=== PATIENT | male | born 1950 | race Caucasian/White ===

== ENCOUNTER 2019-11-13 11:26 | Emergency (ER) | payer OTHER ==
--- OUTSIDE RECORDS SUMMARY | 2019-11-13 11:31 | XMS REPORT ---
:1950 Author Organization [facility] Address [address] [place] [address] Care Team Providers Name Role Phone UNKNOWN, REFFERING Primary Care Provider Unavailable EUFEMIA MARTINEZ Unavailable Unavailable Problems This patient has no known problems. Allergies, Adverse Reactions, Alerts This patient has no known allergies or adverse reactions. Medications This patient has no known medications. Encounters Start End Encounter Admission Attending Care Care Encounter Date/Time Date/Time Type Type Clinicians Facility Department ID 2017-07-30 2017-07-30 Outpatient C DOMENICO MARTINEZ [facility] [id number] 07:57:00 07:57:00 EUFEMIA Results Test Description Test Time Test Comments Text Results Atomic Results Result Comments POC Glucose, Blood 2017-07-30 13:08:00 Test Item Value Reference Range Comments POC Glucose (test code=POCGLUC) 122 mg/dL 70-115 If you consider your patient critically ill, the [place] Accu-Chek InformII metershould not be used for Glucose determinations.Draw a venous Glucose and send to the Main Lab for Analysis. POC Glucose, [id number] 11:59:00 Test Item Value Reference Range Comments POC Glucose (test 132 mg/dL 70-115 If you consider your patient code=POCGLUC) critically ill, the [place] Accu-Chek InformII metershould not be used for Glucose determinations.Draw a venous Glucose and send to the Main Lab for Analysis. POC Glucose, [id number] 07:53:00 Test Item Value Reference Range Comments POC Glucose (test 108 mg/dL 70-115 If you consider your patient code=POCGLUC) critically ill, the [place] Accu-Chek InformII metershould not be used for Glucose determinations.Draw a venous Glucose and send to the Main Lab for Analysis. Culture, [id number] 08:08:00Specimen: UrineCollected: 07/19/2017 15:00 Status: Final Last Updated: 07/21/2017 08:08 Culture Result (Final) (Final ) 07/20/17 No growth 24 hours 07/21/17 No growth 48 hoursXR CHEST 2V, FRANCISCO/ [id number] 15:26:54EXAM: CHEST 2 VIEWSINDICATION: Preop COMPARISON: None availableTECHNIQUE: PA and lateral views of the chest.FINDINGS: The cardiomediastinal silhouette is normal. The lungs are clearbilaterally. No pneumothorax or pleural effusion is identified. Theosseous structures are unremarkable. 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
[2019-11-13 12:54] LABS: Absolute Lymphocytes (CBC) 1.4 K/uL (0.7-4.9); Basophils % 1.3 % (0-1.3); Hematocrit 48.2 % (39.6-49.0); Lymphocytes % 15.1 % (15.3-44.8); MPV 8.5 fL (7.6-11.3); RBC Red Blood Cell Count 4.97 M/uL (4.33-5.43)
--- NOTE | 2019-11-13 13:02 | RAD REPORT ---
EXAM DESCRIPTION: US - Extremity Venous Uni Ltd - 11/13/2019 12:48 pm CLINICAL HISTORY: Pain;Swelling COMPARISON: None. TECHNIQUE: Real-time sonographic evaluation of the right lower extremity deep venous systems was per formed. FINDINGS: Normal compressibility, flow augmentation, phasic flow and spontaneous flow are identified in the right lower extremity common femoral and proximal superficial femoral veins. No intraluminal filling defects seen. Echogenic material is present filling the right leg deep venous system from mid femoral vein through the popliteal vein at the knee. No suspicious soft tissue finding. IMPRESSION: Acute deep venous thrombosis right lower extremity from mid thigh to the knee.
--- NOTE | 2019-11-13 13:04 | RAD REPORT ---
EXAM DESCRIPTION: US - Lower Extremity Artery Uni Ltd - 11/13/2019 12:48 pm CLINICAL HISTORY: PAIN COMPARISON: No comparisons TECHNIQUE: Doppler evaluation of the right arterial tree performed. Waveforms and velocity values we re obtained along with visual inspection. FINDINGS: Velocity values in the right lower extremity are within normal range and show normal taper ing from groin to ankle. No occlusion or flow restricting lesion identifiable. No significant atheros clerotic changes along the pearl of the arterial tree. Biphasic or triphasic waveform pattern was see n. IMPRESSION: Right lower extremity arterial study shows no significant finding.
[2019-11-13 13:11] LABS: Potassium 3.7 mmol/L (3.5-5.1)
--- NOTE | 2019-11-13 13:29 | ER ---
Nurse's Notes [facility] Name: Shayan Ricardo Age: 68 yrs Sex: Male : 1950 Arrival Date: 11/13/2019 Time: 11:31 Bed 5 Private MD: Diagnosis: Acute embolism and thrombosis of unspecified deep veins of right proximal lower extremity Presentation: 11/12 12:01 Chief complaint: Patient states: pain and swelling to right leg X 4-5 days ago, has iw dull aching to back of calf, has hx of vein surgery X 5 years ago, states he drives a lot from [place] to [place]. Coronavirus screen: The patient has NOT traveled to a country currently being monitored by the [facility] within the last 14 days. Proceed with normal triage procedures. The patient has NOT had contact with any known and/or suspected case of coronavirus. Proceed with normal triage procedures. Ebola Screen: Patient negative for fever greater than or equal to 101.5 degrees Fahrenheit, and additional compatible Ebola Virus Disease symptoms Patient denies exposure to infectious person. Patient denies travel to an Ebola-affected area in the 21 days before illness onset. No symptoms or risks identified at this time. Initial Sepsis Screen: Does the patient meet any 2 criteria? No. Patient's initial sepsis screen is negative. Does the patient have a suspected source of infection? No. Patient's initial sepsis screen is negative. Risk Assessment: Do you want to hurt yourself or someone else? Patient reports no desire to harm self or others. 12:01 Method Of Arrival: Ambulatory iw 12:01 Acuity: ALYCIA 3 iw Triage Assessment: 12:05 General: Appears in no apparent distress. comfortable, obese, Behavior is cooperative, bp appropriate for age, anxious. Pain: Complains of pain in right leg and left leg. EENT: No deficits noted. Neuro: No deficits noted. Cardiovascular: Rhythm is sinus tachycardia. Respiratory: No deficits noted. GI: No signs and/or symptoms were reported involving the gastrointestinal system. : No signs and/or symptoms were reported regarding the genitourinary system. Derm: No deficits noted. Musculoskeletal: Swelling present in right leg and left leg. Historical: - Allergies: 12:05 Sulfa (Sulfonamide Antibiotics); iw - PSHx: 12:05 left shoulder; right leg; right foot; left knee; left elbow; left bicep; right knee; iw right shoulder; - Immunization history:: Adult Immunizations up to date. - Social history:: Smoking status: Patient reports the use of cigarette tobacco products, smokes one pack cigarettes per day. - Family history:: not pertinent. - Hospitalizations: : No recent hospitalization is reported. Screenin:27 Abuse screen: Denies threats or abuse. Denies injuries from another. Nutritional hb screening: No deficits noted. Tuberculosis screening: No symptoms or risk factors identified. Fall Risk None identified. Assessment: 12:05 General: SEE TRIAGE NOTE. bp 12:58 Reassessment: PT RETURNED FROM U/S. bp 13:35 Reassessment: D/C ON HOLD FOR RX DELIVERY. bp Vital Signs: 12:01 BP 148 / 93; Pulse 110; Resp 16; Temp 97.5; Pulse Ox 97% on R/A; Weight 120.2 kg; iw Height 6 ft. 0 in. (182.88 cm); Pain 6/10; 14:00 BP 137 / 85; Pulse 95; Resp 16; Temp 97.8; Pulse Ox 98% ; bp 12:01 Body Mass Index 35.94 (120.20 kg, 182.88 cm) iw ED Course: 11:31 Patient arrived in ED. ag5 12:03 Triage completed. iw 12:05 Arm band placed on. iw 12:08 Orlando Siddiqi MD is Attending Physician. rn 12:27 Corey Juárez RN is Primary Nurse. bp 12:27 Patient has correct armband on for positive identification. Placed in gown. Bed in low hb position. Call light in reach. Side rails up X 1. 12:30 Initial lab(s) drawn, by pr, sent to lab. Inserted saline lock: 20 gauge in right em1 antecubital area, using aseptic technique. Blood collected. 12:49 Extremity Venous Sentric Music US In Process Unspecified. EDMS 12:49 Lower Extremity Artery Sentric Music US In Process Unspecified. EDMS 14:13 No provider procedures requiring assistance completed. IV discontinued, intact, bp bleeding controlled, No redness/swelling at site. Pressure dressing applied. Administered Medications: 14:00 Drug: Eliquis 10 mg Route: PO; bp 14:15 Follow up: Response: No adverse reaction bp Outcome: 13:28 Discharge ordered by . rn 14:14 Discharged to home ambulatory, with family. bp 14:14 Condition: stable 14:14 Discharge instructions given to patient, Instructed on discharge instructions, follow up and referral plans. medication usage, Demonstrated understanding of instructions, follow-up care, medications, Prescriptions given X 2. 14:15 Patient left the ED. bp Signatures: Dispatcher [employer] EDCarine Wells RN RN iw Nieto, Roman, MD MD rn Martinez, Eric em1 Belgica Pereyra RN RN hb Peltier, Brian, RN RN bp Gaskin, Ajare ag5
--- NOTE | 2019-11-13 13:29 | EDPHYS ---
Physician Documentation [facility] Name: Shayan Ricardo Age: 68 yrs Sex: Male : 1950 Arrival Date: 11/13/2019 Time: 11:31 Bed 5 Private MD: ED Physician Orlando Siddiqi HPI: 11/12 12:56 This 68 yrs old Male presents to ER via Ambulatory with complaints of Leg rn Swelling. 12:56 The patient presents with pain, swelling. The complaints affect the right calf. Onset: rn The symptoms/episode began/occurred 5 day(s) ago. Modifying factors: The symptoms are alleviated by nothing. the symptoms are aggravated by movement. Severity of symptoms: At their worst the symptoms were moderate, in the emergency department the symptoms are unchanged. The patient has not experienced similar symptoms in the past. Reports RLE swelling and pain, feels "tight", began a few days ago, no fever, no recent surgery. Has had venous surgery to right greater saphenous in past, and has hemochromatosis, never hx of dvt/PE. No recent immobilization. Does drive a lot to visit family, but local from [place] and back. No trauma. . Historical: - Allergies: 12:05 Sulfa (Sulfonamide Antibiotics); iw - PSHx: 12:05 left shoulder; right leg; right foot; left knee; left elbow; left bicep; right knee; iw right shoulder; - Immunization history:: Adult Immunizations up to date. - Social history:: Smoking status: Patient reports the use of cigarette tobacco products, smokes one pack cigarettes per day. - Family history:: not pertinent. - Hospitalizations: : No recent hospitalization is reported. ROS: 12:56 Constitutional: Negative for fever, chills, and weight loss, Cardiovascular: Negative rn for chest pain, palpitations, and edema, Respiratory: Negative for shortness of breath, cough, wheezing, and pleuritic chest pain, Abdomen/GI: Negative for abdominal pain, nausea, vomiting, diarrhea, and constipation, Back: Negative for injury and pain, MS/Extremity: + RLE pain and swelling Skin: + RLE discoloration/darkening Neuro: Negative for headache, weakness, numbness, tingling, and seizure. Exam: 12:56 Constitutional: This is a well developed, well nourished patient who is awake, alert, rn and in no acute distress. Cardiovascular: Regular rate and rhythm. No pulse deficits. Respiratory: No increased work of breathing, no retractions or nasal flaring. Skin: Warm, dry, and no evidence of cellulitis. MS/ Extremity: Pulses equal, no cyanosis. + RLE swelling with increased circumference compared to LLE with 2+ pitting edema and plethoric coloration. Vital Signs: 12:01 BP 148 / 93; Pulse 110; Resp 16; Temp 97.5; Pulse Ox 97% on R/A; Weight 120.2 kg; iw Height 6 ft. 0 in. (182.88 cm); Pain 6/10; 14:00 BP 137 / 85; Pulse 95; Resp 16; Temp 97.8; Pulse Ox 98% ; bp 12:01 Body Mass Index 35.94 (120.20 kg, 182.88 cm) iw MDM: 12:08 Patient medically screened. rn 13:18 ED course: Consulted with bashir Richard to start eliquis and will f/u as outpt. . rn 13:24 Differential diagnosis: DVT. Data reviewed: vital signs, nurses notes, radiologic rn studies, doppler, and as a result, I will discharge patient. Counseling: I had a detailed discussion with the patient and/or guardian regarding: the historical points, exam findings, and any diagnostic results supporting the discharge/admit diagnosis, lab results, radiology results, the need for outpatient follow up, to return to the emergency department if symptoms worsen or persist or if there are any questions or concerns that arise at home. Special discussion: I discussed with the patient/guardian in detail that at this point there is no indication for admission to the hospital. It is understood, however, that if the symptoms persist or worsen the patient needs to return immediately for re-evaluation. 11/12 12:14 Order name: CBC with Diff; Complete Time: 13:01 rn 11/12 12:14 Order name: Basic Metabolic Panel; Complete Time: 13:27 rn 11/12 12:14 Order name: Extremity Venous Uni Ltd US; Complete Time: 13:07 rn 11/12 12:14 Order name: Lower Extremity Artery Uni Ltd US; Complete Time: 13:07 rn 11/12 12:14 Order name: IV Start; Complete Time: 12:30 rn Administered Medications: 14:00 Drug: Eliquis 10 mg Route: PO; bp 14:15 Follow up: Response: No adverse reaction bp Disposition: 11/13/19 13:28 Discharged to Home. Impression: Acute embolism and thrombosis of unspecified deep veins of right proximal lower extremity. - Condition is Stable. - Discharge Instructions: Deep Vein Thrombosis. - Prescriptions for Eliquis 5 mg Oral tablet - take 1 tablet by ORAL route 2 times per day This is daily anticoagulation, don't start taking until completion of first week's prescription; 60 tablet. Eliquis 5 mg Oral tablet - take 2 tablet by ORAL route 2 times per day for 7 days This is starting dose for first week only.; 28 tablet. - Medication Reconciliation Form, Thank You Letter, Antibiotic Education, Prescription Opioid Use form. - Follow up: Private Physician; When: As needed; Reason: Recheck today's complaints, Re-evaluation by your physician. - Problem is new. - Symptoms are unchanged. Signatures: Dispatcher [employer] EDCarine Wells RN RN iw Nieto, Roman, MD MD rn Peltier, Brian, RN RN bp Corrections: (The following items were deleted from the chart) 14:15 13:28 11/13/2019 13:28 Discharged to Home. Impression: Acute embolism and thrombosis of bp unspecified deep veins of right proximal lower extremity. Condition is Stable. Forms are Medication Reconciliation Form, Thank You Letter, Antibiotic Education, Prescription Opioid Use. Follow up: Private Physician; When: As needed; Reason: Recheck today's complaints, Re-evaluation by your physician. Problem is new. Symptoms are unchanged. rn
[2019-11-13] MEDS ORDERED: APIXABAN 5 MG TABLET PO ONE (13:45)
[2019-11-13 14:36] VITALS: BP 137/85; TEMP 97.8; O2SAT 98
== END 2019-11-13 14:15 | disposition home or self-care (01) ==
LOC: ER 11:26
DX: I82.4Y1 Acute embolism and thrombosis of unspecified deep veins of right proximal lower extremity (principal); F17.210 Nicotine dependence, cigarettes, uncomplicated; Z88.2 Allergy status to sulfonamides
CPT/HCPCS: 36415; 80048; 85025; 93926; 93971; 99284

== ENCOUNTER 2021-03-23 13:18 | Emergency (ER) | payer OTHER ==
--- OUTSIDE RECORDS SUMMARY | 2021-03-23 13:21 | XMS REPORT | Continuity of Care Document ---
:1950 Author Organization [facility] Address [address] [place] [address] Care Team Providers Name Role Phone UNKNOWN Primary Care Physician Unavailable Abbie MOONEY Attending Clinician Unavailable Jake TORRES, Y.H. Attending Clinician Provider Attending Clinician Zion MOONEY Attending Clinician Unavailable Daryn MARTINEZ Attending Clinician Unavailable Daryn MARTINEZ Admitting Clinician Unavailable Payers Payer Name Policy Type Policy Effective Date Expiration Date Sour ce Number AETNA MEDICAREAETNA [id number] 2018 [place] MEDICARE HMO/PPO 00:00:00 Methodis t [id number] -PresentHMO Problems This patient has no known problems. Allergies, Adverse Reactions, Alerts This patient has no known allergies or adverse reactions. Family History Family Member Diagnosis Comments Start Date Stop Date Source Natural father Diabetes [facility]od[facility] Natural father Pancreatic cancer Jin Darnell Paternal grandfather Lung cancer Jin Darnell Social History Social Habit Start Date Stop Date Quantity Comments Source Cigarettes smoked 2020-09-19 2020-09-19 Josias Darnell current (pack per 00:00:00 00:00:00 day) - Reported Cigarette 2020-09-19 2020-09-19 Josias Garnica ist pack-years 00:00:00 00:00:00 Tobacco use and 2020-09-19 2020-09-19 Never used Josias Hawkins [facility] exposure 00:00:00 00:00:00 Alcohol intake 2020-09-19 2020-09-19 Current drinker Gia boudreaux [facility] 00:00:00 00:00:00 of alcohol (finding) History of tobacco 2020-08-30 Current smoker Sloan anderson [facility] use 00:00:00 Sex Ass[birth year] At [birth year] M Josias Hawkins [facility] 00:00:00 00:00:00 Smoking Status Start Date Stop Date Source Former smoker 2020-09-19 00:00:00 2020-09-19 00:00:00 [place] [facility] Medications Ordered Filled Start Stop Current Ordering Indication Dosage Frequency Signature Comments Components Source Medication Medication Date Date Medication? Clinician (SIG) Name Name Zoila 20 Yes [place] mg tablet 1-14 Methodi 00:00: st 00 Chantix 2019-08 Yes See Admin [place] Starting 2-29 Instructio Metho Box 00:00: ns. follow st 0.5 mg 00 package (11)- 1 mg directions (42) tablet - Tradjenta 5 2019-08 Yes 5mg QD Take 5 mg [place] mg tablet 2-28 by mouth Method i 00:00: daily. tamsulosin 2019-08 Yes [place] HCl 2-24 [facility] (TAMSULOSIN 00:00: st ORAL) 00 finasteride 2019-08 Yes 5mg QD Take 5 mg [place] (PROSCAR) 5 2-24 by mouth Meth lance mg tablet 00:00: daily. glipiZIDE 2019-08 Yes 5mg QD Take 5 mg Jin ston (GLUCOTROL) 2-24 by mouth Meth lance 5 MG 24 hr 00:00: daily. st tablet 00 with food - metFORMIN 2019-08 Yes 1000mg Q.5D Take 1,000 [place] (GLUCOPHAGE 2-16 mg by Method[facility] ) 1,000 mg 00:00: mouth 2 st tablet 00 (two) times a day. Vital Signs Vital Name Observation Time Observation Value Comments Source Systolic blood 2020-09-19 12:13:00 155 mm[Hg] Steph n [facility] pressure Diastolic blood 2020-09-19 12:13:00 77 mm[Hg] Gia on [facility] pressure Heart rate 2020-09-19 12:13:00 108 /min Josias Darnell Body temperature 2020-09-19 12:13:00 36.61 Anita [place] [facility] Respiratory rate 2020-09-19 12:13:00 17 /min [place] [facility] Body height 2020-09-19 12:13:00 182.9 cm Josias Darnell Body weight 2020-09-19 12:13:00 122.471 kg Josias Darnell BMI 2020-09-19 12:13:00 36.62 kg/m2 Josias Darnell Oxygen saturation in 2020-09-19 12:13:00 95 /min Josias Darnell Arterial blood by Pulse oximetry Procedures Procedure Date / Time Performed Performing Clinician Sour e CT CHEST EXTERNAL STUDY 2020-08-07 15:02:[address] CHEST W CONTRAST 2020-08-07 00:00:00 ProviderMónica [id number] 2020-07-29 00:00:[address] WHOLE BODY 2020-05-09 09:31:00 Brent Joseph EXTERNAL STUDY PET CT SKULL BASE TO MID 2020-05-09 00:00:00 ProviderAdam THIGH Plan of Care Planned Activity Planned Date Details Comments Source Future Scheduled 2021-03-30 INFLUENZA VACCINE [place] [facility] Test 00:00:00 [code = INFLUENZA VACCINE] Future Scheduled 2005 Screening for [place] [facility] Test 00:00:00 malignant neoplasm of lung (procedure) [code = 284399300] Future Scheduled 2000 COLONOSCOPY SCREENING [place] [facility] Test 00:00:00 [code = COLONOSCOPY SCREENING] Future Scheduled 2000 SHINGLES VACCINES (#1) [place] [facility] Test 00:00:00 [code = SHINGLES VACCINES (#1)] Future Scheduled 1968 Hepatitis C screening [place] [facility] Test 00:00:00 (procedure) [code = 852588937] Future Scheduled 1962 COVID-19 VACCINE (1) Jin stojaleel [facility] Test 00:00:00 [code = COVID-19 VACCINE (1)] Future Scheduled 1960 DIABETES: RETINAL EYE [place] [facility] Test 00:00:00 EXAM [code = DIABETES: RETINAL EYE EXAM] Future Scheduled 1960 DIABETIC FOOT EXAM [place] [facility] Test 00:00:00 [code = DIABETIC FOOT EXAM] Future Scheduled 1960 URINE MICROALBUMIN [place] [facility] Test 00:00:00 [code = URINE MICROALBUMIN] Future Scheduled 1956 65+ PNEUMOCOCCAL [place] [facility] Test 00:00:00 VACCINE (1 of 2 - PPSV23) [code = 65+ PNEUMOCOCCAL VACCINE (1 of 2 - PPSV23)] Encounters Start End Encounter Admission Attending Care Care Encounter Source Date/Time Date/Time Type Type Clinicians Facility Department ID 2020-09-19 2020-09-19 Outpatient JOSEPH, [facility] [id number] [address] [place] 00:00:00 00:00:00 EDWARD [address] 2020-09-19 2020-09-19 [id number] [address] [place] 00:00:00 00:00:00 EDWARD [address] 2020-09-19 2020-09-19 Outpatient JAKE, [facility] [id number] [place] 00:00:00 00:00:00 EDWARD [address] 2020-09-19 2020-09-19 [facility] [id number] [address] [place] 00:00:00 00:00:00 EDWARD [address] 2017-07-30 2017-07-30 Outpatient Tootie MARTINEZ, [facility] JOSR [id number] 07:57:00 07:57:00 [facility] Results Test Description Test Time Test Comments Results Result [facility] e Comments PET/CT Whole Body 2020-09-19 This exam was not [place] External Study 13:17:11 acquired at a [facility] facility and has not been interpreted by a [facility] Provider. The exam was imported into our imaging system. CT Chest External 2020-09-19 This exam was not [place] Study 13:15:45 acquired at a [facility] facility and has not been interpreted by a [facility] Provider. The exam was imported into our imaging system. POC Glucose, Blood 2017-07-30 13:08:00 Test Item Value Reference Range Interpretation Comme nts POC Glucose (test code = 122 mg/dL 70-115 H If you consider your patient POCGLUC) critically ill, the [place] Accu-Chek InformII meters hould not be used for Glucose determi nations.Draw a venous Glucose and sen d to the Main Lab for Analysis. POC Glucose, [id number] 11:59:00 Test Item Value Reference Range Interpretation Comments POC Glucose (test 132 mg/dL 70-115 H If you con cage supervisor your code = POCGLUC) patient crit ically ill, the [place] Accu- Chek InformII meters hould not be used for Glu cose determinations. Draw a venous Glucose and send to the Main Lab for Analysis. POC Glucose, [id number] 07:53:00 Test Item Value Reference Range Interpretation Comments POC Glucose (test 108 mg/dL 70-115 N If you con cage supervisor your code = POCGLUC) patient crit ically ill, the [place] Accu- Chek InformII meters hould not be used for Glu cose determinations. Draw a venous Glucose and send to the Main Lab for Analysis. Culture, [id number] 08:08:00Specimen: UrineCollected: 07/19/2017 15:00 Status: Final Last Updated: 07/21/2017 08:08 Culture Result (Final) (Final) 07/20/17 No growth 24 hours 07/21/17 No growth 48 hoursXR CHEST 2V, PA/LAT 2017-07-19 15:26:54EXAM: CHEST 2 VIEWSINDICATION: Preop COMPARISON: None availableTECHNIQUE: PA and lateral views of the chest.FINDINGS: The cardiomediastinal silhouette is normal. The lungs are clearbilaterally. No pneum othorax or pleural effusion is identified. Theosseous structures are unremarkable. 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
--- NOTE | 2021-03-23 14:26 | RAD REPORT ---
EXAM DESCRIPTION: RAD - Chest Single View - 03/23/2021 2:12 pm CLINICAL HISTORY: CHEST PAIN COMPARISON: No comparisons FINDINGS: No evidence of edema or pneumonia. The heart size is within normal limits.No acute osseous abnormality. No significant pleural effusions or pneumothorax. Bilateral shoulder arthroplasties. IMPRESSION: No acute cardiopulmonary disease.
[2021-03-23 14:28] LABS: Protime INR 1.43
[2021-03-23 14:32] LABS: Absolute Lymphocytes (CBC) 1.7 K/uL (0.7-4.9); Basophils % 0.7 % (0-1.3); Lymphocytes % 21.9 % (15.3-44.8); MPV 7.9 fL (7.6-11.3); RBC Red Blood Cell Count 4.67 M/uL (4.33-5.43)
[2021-03-23 14:41] LABS: ALT/SGPT 32 U/L (12-78); AST/SGOT 13 U/L (15-37); Albumin 3.7 g/dL (3.4-5.0); Alkaline Phosphatase 59 U/L (45-117); BUN Blood Urea Nitrogen 11 mg/dL (7-18); Bicarbonate 26 mmol/L (21-32); Bilirubin Direct 0.1 mg/dL (0-0.2); Bilirubin Total 0.3 mg/dL (0.2-1.0); Glucose Level 214 mg/dL (74-106); Magnesium 2.2 mg/dL (1.8-2.4); NT PRO-BNP 38 pg/mL (<125); Potassium 3.7 mmol/L (3.5-5.1); Sodium Level 139 mmol/L (136-145); Troponin (Emerg Dept Use Only) < 0.02 ng/mL (0.0-0.045)
[2021-03-23] MEDS ORDERED: LEVALBUTEROL 1.25 MG/3 ML NEB ONE (14:56)
[2021-03-23] MEDS ORDERED: NA CHLORIDE 0.9% 500 ML ONE (14:56)
--- NOTE | 2021-03-23 15:12 | RAD REPORT ---
EXAM DESCRIPTION: CT - Chest For Pe Angio - 03/23/2021 2:54 pm CLINICAL HISTORY: ?PE, has DVT on xarelto COMPARISON: Thorax Wo Con dated 01/29/2021; Thorax W/ Con dated 08/07/2020; Lung Cancer Screening CT W/ O dated 02/21/2020 FINDINGS: Chest Wall: No suspicious thyroid nodules or pathologic lymphadenopathy. Lungs: 10 mm right upper lobe nodule is unchanged since at least at least 02/21/2020 and benign. Pleura: No significant effusions or pneumothorax. Mediastinum/baltazar: No pathologic lymphadenopathy. Pulmonary arteries/Aorta: No filling defect identified. No aortic aneurysm. The subsegmental pulmonar y arteries are not well evaluated due to motion. Heart: No significant pericardial effusion. Normal heart size. Upper abdomen: No acute abnormality. Hepatic steatosis. Bones: No acute abnormality. Bilateral shoulder arthroplasty. IMPRESSION: Negative for pulmonary embolism. No other acute findings are present within the chest. I ncidental findings as noted above.
[2021-03-23 15:58] LABS: Urine Blood Negative (Negative); Urine Glucose 2+ (Negative); Urine Protein Negative (Negative)
--- NOTE | 2021-03-25 16:36 | EDPHYS ---
Physician Documentation [facility] Name: Shayan Ricardo Age: 70 yrs Sex: Male : 1950 Arrival Date: 03/23/2021 Time: 13:20 Bed 3 Private MD: [facility] ED Physician Rohini Hernandez HPI: 03/23 14:25 This 70 yrs old Male presents to ER via Ambulatory with complaints of High ma2 Blood Pressure, Irregular Heart Rate. 14:25 Onset: The symptoms/episode began/occurred gradually, 2 day(s) ago. Associated signs ma2 and symptoms: Pertinent negatives: dyspnea, nausea, visual changes. Severity of symptoms: At its worst the blood pressure was moderate, in the emergency department the blood pressure is unchanged. The patient has not experienced similar symptoms in the past. Historical: - Allergies: 14:04 Latex, Natural Rubber; kg - Home Meds: 14:04 Xarelto 20 mg oral tab 1 tab once daily [Active]; tamsulosin 0.4 mg oral cap 1 cap once kg daily [Active]; finasteride 5 mg oral tab 1 tab once daily [Active]; glipizide 10 mg Oral tab 1 tab once daily [Active]; Tradjenta 5 mg oral tab 1 tab once daily [Active]; metformin 1,000 mg Oral tab 1 tab 2 times per day [Active]; - PMHx: 14:08 Hemachromatosis; DVT; kg - Immunization history:: Adult Immunizations up to date, Client reports receiving the 2nd dose of the Covid vaccine. - Social history:: Smoking status: Patient/guardian denies using tobacco, but has a distant history of tobacco abuse. - Family history:: not pertinent. ROS: 14:25 Constitutional: Negative for fever, chills, and weight loss. ma2 14:25 All other systems are negative. Exam: 14:25 Constitutional: This is a well developed, well nourished patient who is awake, alert, ma2 and in no acute distress. Head/Face: Normocephalic, atraumatic. Eyes: Pupils equal round and reactive to light, extra-ocular motions intact. Lids and lashes normal. Conjunctiva and sclera are non-icteric and not injected. Cornea within normal limits. Periorbital areas with no swelling, redness, or edema. ENT: Nares patent. No nasal discharge, no septal abnormalities noted. Tympanic membranes are normal and external auditory canals are clear. Oropharynx with no redness, swelling, or masses, exudates, or evidence of obstruction, uvula midline. Mucous membranes moist. Neck: Trachea midline, no thyromegaly or masses palpated, and no cervical lymphadenopathy. Supple, full range of motion without nuchal rigidity, or vertebral point tenderness. No Meningismus. Chest/axilla: Normal chest wall appearance and motion. Nontender with no deformity. No lesions are appreciated. Cardiovascular: fast rate and regular rhythm with a normal S1 and S2. No gallops, murmurs, or rubs. Normal PMI, no JVD. No pulse deficits. Respiratory: Lungs have equal breath sounds bilaterally, clear to auscultation and percussion. No rales, rhonchi or wheezes noted. No increased work of breathing, no retractions or nasal flaring. Abdomen/GI: Soft, non-tender, with normal bowel sounds. No distension or tympany. No guarding or rebound. No evidence of tenderness throughout. Back: No spinal tenderness. No costovertebral tenderness. Full range of motion. Skin: Warm, dry with normal turgor. Normal color with no rashes, no lesions, and no evidence of cellulitis. MS/ Extremity: Pulses equal, no cyanosis. Neurovascular intact. Full, normal range of motion. Neuro: Awake and alert, GCS 15, oriented to person, place, time, and situation. Cranial nerves II-XII grossly intact. Motor strength 5/5 in all extremities. Sensory grossly intact. Cerebellar exam normal. Normal gait. Vital Signs: 13:45 BP 160 / 94; Pulse 118; Resp 20; Pulse Ox 98% on R/A; kg 14:00 BP 160 / 94; Pulse 114; Resp 19; Temp 99.1(O); Pulse Ox 98% on R/A; Weight 127.5 kg kg (M); Height 6 ft. 0 in. (182.88 cm) (R); Pain 3/10; 14:00 BP 127 / 78; Pulse 110; Resp 20; Pulse Ox 98% on R/A; kg 14:30 BP 134 / 81; Pulse 105; Resp 20; Pulse Ox 96% ; kg 15:00 BP 152 / 74; Pulse 102; Resp 20; Pulse Ox 97% on R/A; kg 16:15 BP 144 / 75; Pulse 98; Resp 20; Pulse Ox 95% ; kg 16:35 BP 154 / 85; Pulse 92; Resp 20; Pulse Ox 100% on R/A; kg 14:00 Body Mass Index 38.12 (127.50 kg, 182.88 cm) kg MDM: 13:59 Patient medically screened. [facility] 14:25 Differential diagnosis: Differential diagnosis includes PE, tachycardia due to ma2 pneumonia, dehydration, or UTI, versus COPD. Data reviewed: vital signs, nurses notes. Counseling: I had a detailed discussion with the patient and/or guardian regarding: the historical points, exam findings, and any diagnostic results supporting the discharge/admit diagnosis, the presence of at least one elevated blood pressure reading (>120/80) during this emergency department visit, the need for outpatient follow up. 16:05 Response to treatment: the patient's symptoms have markedly improved after treatment. [facility] ED course: Heart rate improved to 90s, from 117, blood pressure has improved to 140/70 from 180/90, patient symptoms has resolved, he did had some reactive airway disease with wheezes scattered expiratory all over, that has resolved with nebulizer treatment, EKG shows sinus with a regular rate at this time. Vital signs are within normal limits at this time, I recommend a follow-up with a telephone messenger, he already has follow-up with the pulmonary physician. I recommend return to ER for any worsening, patient did not had any chest pain or any anginal equivalent symptoms.. 03/23 13:59 Order name: Basic Metabolic Panel [facility] 03/23 13:59 Order name: CBC with Diff 03/23 13:59 Order name: LFT's [facility] 03/23 13:59 Order name: Magnesium; Complete Time: 15:08 [facility] 03/23 13:59 Order name: NT PRO-BNP; Complete Time: 15:08 [facility] 03/23 13:59 Order name: PT-INR; Complete Time: 15:08 [facility] 03/23 13:59 Order name: Troponin (emerg Dept Use Only); Complete Time: 15:08 [facility] 03/23 13:59 Order name: XRAY Chest (1 view); Complete Time: 14:34 [facility] 03/23 14:00 Order name: Basic Metabolic Panel; Complete Time: 15:08 [facility] 03/23 14:00 Order name: CBC with Automated Diff; Complete Time: 15:08 [facility] 03/23 14:00 Order name: Liver (Hepatic) Function; Complete Time: 15:08 [facility] 03/23 14:21 Order name: CT Chest For PE Angio; Complete Time: 15:29 [facility] 03/23 15:58 Order name: Urine Dipstick-Ancillary; Complete Time: 16:08 [facility] 03/23 13:59 Order name: EKG; Complete Time: 14:00 [facility] 03/23 13:59 Order name: Cardiac monitoring; Complete Time: 14:28 [facility] 03/23 13:59 Order name: EKG - Nurse/Tech; Complete Time: 14:28 [facility] 03/23 13:59 Order name: IV Saline Lock; Complete Time: 14:28 [facility] 03/23 13:59 Order name: Labs collected and sent; Complete Time: 14:28 [facility] 03/23 13:59 Order name: O2 Per Protocol; Complete Time: 14:28 [facility] 03/23 13:59 Order name: O2 Sat Monitoring; Complete Time: 14:28 [facility] 03/23 14:02 Order name: Urine Dipstick-Ancillary (obtain specimen); Complete Time: 16:33 ma2 Administered Medications: 14:38 Drug: NS 0.9% 500 ml Route: IV; Rate: bolus; Site: right antecubital; kg 15:02 Follow up: Response: No adverse reaction; Marked relief of symptoms; IV Status: kg Completed infusion; IV Intake: 500ml 14:38 Drug: Xopenex (levalbuterol) 1.25 mg Route: Inhalation; kg 15:03 Follow up: Response: No adverse reaction kg Disposition Summary: 03/23/21 16:08 Discharge Ordered Location: Home ma2 Condition: Stable ma2 Diagnosis - Shortness of breath - tachycardia ma2 Followup: ma2 - With: Private Physician - When: Tomorrow - Reason: If symptoms return, Continuance of care Followup: ma2 - With: Marcio Romero MD - When: Tomorrow - Reason: Continuance of care Discharge Instructions: - Discharge Summary Sheet ma2 - Shortness of Breath, Adult, [id number] ma2 Forms: - Medication Reconciliation Form ma2 - Thank You Letter ma2 - Antibiotic Education ma2 - Prescription Opioid Use ma2 Signatures: Dispatcher [employer] EDRohini Navarrete MD MD ma2 Larisa Landis RN RN kg
--- NOTE | 2021-03-25 16:36 | ER ---
Nurse's Notes [facility] Name: Shayan Ricardo Age: 70 yrs Sex: Male : 1950 Arrival Date: 03/23/2021 Time: 13:20 Bed 3 Private MD: Bert Dillon Diagnosis: Shortness of breath-tachycardia Presentation: 03/23 14:00 Chief complaint: Patient states: High blood pressure and pulse x 2 days. Increased kg fatigue and SOB over the last few weeks. Home V/S: 03/22- 157/86- 112. Chief complaint:. Coronavirus screen: Client denies travel out of the [place] in the last 14 days. At this time, unable to obtain information related to travel outside the [place] At this time, the client does not indicate any symptoms associated with coronavirus-19. Ebola Screen: Patient negative for fever greater than or equal to 101.5 degrees Fahrenheit, and additional compatible Ebola Virus Disease symptoms Patient denies exposure to infectious person. Patient denies travel to an Ebola-affected area in the 21 days before illness onset. Initial Sepsis Screen: Does the patient meet any 2 criteria? HR > 90 bpm. Does the patient have a suspected source of infection? No. Patient's initial sepsis screen is negative. Risk Assessment: Do you want to hurt yourself or someone else? Patient reports no desire to harm self or others. Onset of symptoms was March 22, 2021. 14:00 Method Of Arrival: Ambulatory kg 14:00 Acuity: ALYCIA 3 kg Historical: - Allergies: 14:04 Latex, Natural Rubber; kg - Home Meds: 14:04 Xarelto 20 mg oral tab 1 tab once daily [Active]; tamsulosin 0.4 mg oral cap 1 cap once kg daily [Active]; finasteride 5 mg oral tab 1 tab once daily [Active]; glipizide 10 mg Oral tab 1 tab once daily [Active]; Tradjenta 5 mg oral tab 1 tab once daily [Active]; metformin 1,000 mg Oral tab 1 tab 2 times per day [Active]; - PMHx: 14:08 Hemachromatosis; DVT; kg - Immunization history:: Adult Immunizations up to date, Client reports receiving the 2nd dose of the Covid vaccine. - Social history:: Smoking status: Patient/guardian denies using tobacco, but has a distant history of tobacco abuse. - Family history:: not pertinent. Screenin:40 Abuse screen: Denies threats or abuse. Denies injuries from another. Nutritional kg screening: No deficits noted. Tuberculosis screening: No symptoms or risk factors identified. Fall Risk None identified. No fall in past 12 months (0 pts). No secondary diagnosis (0 pts). No IV (0 pts). Ambulatory Aid- None/Bed Rest/Nurse Assist (0 pts). Gait- Normal/Bed Rest/Wheelchair (0 pts) Mental Status- Oriented to own ability (0 pts). Total John Fall Scale indicates No Risk (0-24 pts). Assessment: 14:10 General: Appears in no apparent distress. Behavior is calm, cooperative, appropriate kg for age, quiet. Pain: Complains of pain in Generalized. 14:10 Neuro: No deficits noted. Cardiovascular: Reports shortness of breath, Pt stated his BP kg and pulse has been elevated at home over the last few days. Cardiovascular: Heart tones S1 S2 Capillary refill < 3 seconds. Respiratory: Reports shortness of breath on exertion cough that is productive, Breath sounds are clear bilaterally. Breath sounds are diminished. GI: No deficits noted. : No deficits noted. EENT: No deficits noted. Derm: No deficits noted. Musculoskeletal: No deficits noted. Vital Signs: 13:45 BP 160 / 94; Pulse 118; Resp 20; Pulse Ox 98% on R/A; kg 14:00 BP 160 / 94; Pulse 114; Resp 19; Temp 99.1(O); Pulse Ox 98% on R/A; Weight 127.5 kg kg (M); Height 6 ft. 0 in. (182.88 cm) (R); Pain 3/10; 14:00 BP 127 / 78; Pulse 110; Resp 20; Pulse Ox 98% on R/A; kg 14:30 BP 134 / 81; Pulse 105; Resp 20; Pulse Ox 96% ; kg 15:00 BP 152 / 74; Pulse 102; Resp 20; Pulse Ox 97% on R/A; kg 16:15 BP 144 / 75; Pulse 98; Resp 20; Pulse Ox 95% ; kg 16:35 BP 154 / 85; Pulse 92; Resp 20; Pulse Ox 100% on R/A; kg 14:00 Body Mass Index 38.12 (127.50 kg, 182.88 cm) kg ED Course: 13:20 Patient arrived in ED. ds1 13:21 Bert Dillon DO is Private Physician. ds1 13:56 Larisa Landis, EMMA is Primary Nurse. kg 13:59 Rohini Hernandez MD is Attending Physician. ma2 14:04 Triage completed. kg 14:12 XRAY Chest (1 view) In Process Unspecified. EDMS 14:20 Inserted saline lock: 18 gauge in right antecubital area, using aseptic technique. kg 14:28 Basic Metabolic Panel Sent. kg 14:28 CBC with Diff Sent. kg 14:28 LFT's Sent. kg 14:54 CT Chest For PE Angio In Process Unspecified. EDMS 16:08 Marcio Romero MD is Referral Physician. ma2 16:40 No provider procedures requiring assistance completed. IV discontinued, intact, kg bleeding controlled, No redness/swelling at site. Pressure dressing applied. 16:40 Arm band placed on left wrist. kg 16:41 Patient has correct armband on for positive identification. kg Administered Medications: 14:38 Drug: NS 0.9% 500 ml Route: IV; Rate: bolus; Site: right antecubital; kg 15:02 Follow up: Response: No adverse reaction; Marked relief of symptoms; IV Status: kg Completed infusion; IV Intake: 500ml 14:38 Drug: Xopenex (levalbuterol) 1.25 mg Route: Inhalation; kg 15:03 Follow up: Response: No adverse reaction kg Intake: 15:02 IV: 500ml; Total: 500ml. kg Outcome: 16:08 Discharge ordered by . ma2 16:40 Discharged to home ambulatory. kg 16:40 Condition: good 16:40 Discharge instructions given to patient, Instructed on discharge instructions, follow up and referral plans. Demonstrated understanding of instructions, follow-up care. 16:41 Patient left the ED. kg Signatures: Dispatcher [employer] [facility] Cassandra Stone ds1 Rohini Hernandez MD MD ma2 Larisa Landis RN RN kg Corrections: (The following items were deleted from the chart) 14:39 14:38 Inserted saline lock: 18 gauge in right antecubital area, using aseptic kg technique. kg
[2021-03-25 19:49] VITALS: TEMP 99.1
[2021-03-25 19:56] VITALS: BP 154/85; O2SAT 100
== END 2021-03-23 16:41 | disposition home or self-care (01) ==
LOC: ER 13:18
DX: R00.0 Tachycardia, unspecified (principal); Z86.718 Personal history of other venous thrombosis and embolism; Z79.01 Long term (current) use of anticoagulants; Z91.040 Latex allergy status; Z91.048 Other nonmedicinal substance allergy status
CPT/HCPCS: 93005; 85025; 80048; 36415; 83735; 85610; 80076; 81003; 84484; 83880; 71275; 71045; 99284; Q9967; J7040